=== PATIENT | female | born 1935 | race African-American/Black ===

== ENCOUNTER 2016-10-19 07:48 | Inpatient (IN) | payer MEDICARE, OTHER ==
[2016-10-19] MEDS ORDERED: NORMAL SALINE 1000 ML 500 ML IV ONE (09:08)
[2016-10-19] MEDS ORDERED: ALBUTEROL SULFATE 0.083% NEB 2.5 MG/3 ML AMPUL NEB ONE (09:19)
[2016-10-19 10:06] LABS: ABSOLUTE LYMPHOCYTES (AUTO) 0.9 10^3/uL (0.5-4.7); ABSOLUTE MONOCYTES (AUTO) 0.9 10^3/uL (0.1-1.4); ABSOLUTE NEUT (AUTO) 12.7 10^3/uL (1.7-8.2); BASOPHILS % (AUTO) 0.1 % (0-2); EOSINOPHILS % (AUTO) 0.1 % (0-6); HEMATOCRIT 32.7 % (36.0-47.0); HEMOGLOBIN 10.4 g/dL (12.0-15.5); HGB HCT DIFFERENCE -1.5; LYMPHOCYTES % (AUTO) 6.5 % (13-45); MEAN CORPUSCULAR HEMOGLOBIN 27.4 pg (27.0-33.4); MEAN CORPUSCULAR HGB CONC 31.7 g/dL (32.0-36.0); MEAN CORPUSCULAR VOLUME 87 fl (80-97); MONOCYTES % (AUTO) 6.4 % (3-13); RED BLOOD COUNT 3.78 10^6/uL (3.72-5.28); RED CELL DISTRIBUTION WIDTH 16.8 % (11.5-14.0); SEGMENTED NEUTROPHILS % (AUTO) 86.9 % (42-78); WHITE BLOOD COUNT 14.6 10^3/uL (4.0-10.5)
[2016-10-19 10:23] LABS: ALANINE AMINOTRANSFERASE 27 U/L (9-52); ALBUMIN 3.8 g/dL (3.5-5.0); ALKALINE PHOSPHATASE 74 U/L (38-126); ANION GAP 19 (5-19); ASPARTATE AMINO TRANSFERASE 32 U/L (14-36); BILIRUBIN,TOTAL 1.3 mg/dL (0.2-1.3); BLOOD UREA NITROGEN 83 mg/dL (7-20); CALCIUM 10.1 mg/dL (8.4-10.2); CARBON DIOXIDE 21 mmol/L (22-30); CHLORIDE 111 mmol/L (98-107); CREATINE KINASE 117 U/L (30-135); CREATININE RESULT 4.28 mg/dL (0.52-1.25); GLUCOSE 136 mg/dL (75-110); SODIUM 151.4 mmol/L (137-145); TOTAL PROTEIN 6.6 g/dL (6.3-8.2)
[2016-10-19 10:35] LABS: CREATINE KINASE MB 2.71 ng/mL (<4.55)
[2016-10-19 10:37] LABS: TROPONIN I 0.172 ng/mL
[2016-10-19] MEDS ORDERED: CEFTRIAXONE 1 GM/D5W RTU 50 ML IV ONE (10:40)
[2016-10-19] MEDS ORDERED: NORMAL SALINE 1000 ML 1,000 ML IV ONE ×2 (10:40→12:17)
[2016-10-19 10:43] LABS: APPEARANCE,URINE CLEAR; BILIRUBIN,URINE NEGATIVE (NEGATIVE); GLUCOSE, URINE NEGATIVE (NEGATIVE); KETONES,URINE NEGATIVE (NEGATIVE); LEUKOCYTE ESTERASE,URINE NEGATIVE (NEGATIVE); NITRITE,URINE NEGATIVE (NEGATIVE); PROTEIN,URINE NEGATIVE (NEGATIVE); URINE SPECIFIC GRAVITY 1.011; UROBILINOGEN,URINE NEGATIVE mg/dL (<2.0)
[2016-10-19] MEDS ORDERED: DEXTROSE 5%-1/2 NORMAL SALINE 1,000 ML IV ONE (12:26)
[2016-10-19] MEDS ORDERED: ONDANSETRON HCL INJ/PF 4 MG/2 ML SDV IV PRN (12:39)
[2016-10-19] MEDS ORDERED: ACETAMINOPHEN 650 MG SUPP.RECT PR PRN (12:39)
--- NOTE | 2016-10-19 12:42 | ER Document Report ---
ED General - General Chief Complaint: Shortness Of Breath Stated Complaint: SHORTNESS OF BREATH TRAVEL OUTSIDE OF THE [place] IN LAST 30 DAYS: No - HPI Patient complains to provider of: shortness of breath feeling unwell Notes: Patient's coming in family at bedside patient according to family is a DNR/DNI. Patient looks debilitated frail according to family member patient is minimally verbal and minimally active history dementia and is from home states cough and rattling in her chest for last few days also states that the home health care nurse noticed swelling of her legs therefore brought patient in for evaluation. Family states patient recently on ampicillin for UTI. Otherwise most of the history of present illness is unobtainable from the patient family has minimal information to give. - Related Data Allergies/Adverse Reactions: Tuberculin,Ppd,Multi-Puncture [From Tuberculin PPD Tamara Test] Allergy (Verified 10/19/16 08:06) Past Medical History - Social History Smoking Status: Unknown if Ever Smoked Family History: DM, Hypertension Patient has suicidal ideation: No Patient has homicidal ideation: No - Past Medical History Cardiac Medical History: Reports: Hx Hypertension Pulmonary Medical History: Reports: Hx Asthma, Hx COPD Neurological Medical History: Reports: Hx Cerebrovascular Accident Endocrine Medical History: Reports: Hx Diabetes Mellitus Type 2, Hx Hypothyroidism Renal/ Medical History: Denies: Hx Peritoneal Dialysis Musculoskeltal Medical History: Reports Hx Musculoskeletal Trauma Psychiatric Medical History: Reports: Hx Dementia Traumatic Medical History: Reports: Hx Fractures - hip Past Surgical History: Reports: Hx Orthopedic Surgery - hip replacement, Hx Tubal Ligation - Immunizations Immunizations up to date: Yes Hx Diphtheria, Pertussis, Tetanus Vaccination: Yes Hx Pneumococcal Vaccination: 08/10/00 Review of Systems - Review of Systems -: Yes ROS unobtainable due to patient's medical condition - Dementia Physical Exam - Vital signs Vitals: Pulse Resp BP Pulse Ox 56 L 26 H 118/93 H 94 10/19/16 08:06 10/19/16 08:06 10/19/16 08:06 10/19/16 08:06 Interpretation: Normal - General General appearance: Unresponsive - HEENT Head: Normocephalic, Atraumatic, Other - Patient with a wound very stages of healing with some necrotic tissue of the right ear Pupils: PERRL - Respiratory Respiratory status: No respiratory distress Chest status: Nontender Breath sounds: Rhonchi Chest palpation: Normal - Cardiovascular Rhythm: Regular Heart sounds: Normal auscultation Murmur: No - Abdominal Inspection: Normal Distension: No distension Bowel sounds: Normal Tenderness: Nontender Organomegaly: No organomegaly - Rectal Notes: Patient with unstageable decubitus ulceration with necrotic tissue ulceration has surrounding erythema approximately 5 cm x 7 cm with a foul odor no purulent drainage - Genitourinary External exam: Normal - Back Back: Normal, Nontender - Extremities General upper extremity: Normal inspection, Nontender General lower extremity: Normal inspection, Nontender - Neurological Neuro grossly intact: Yes - Psychological Associated symptoms: Other - Dementia - Skin Skin Temperature: Warm Skin Moisture: Dry Skin Color: Normal Course - Re-evaluation Re-evalutation: 10/19/16 12:29 Discussion with the family at bedside states makes medical decisions for the patient states that the patient is a DO NOT RESUSCITATE. 10/19/16 13:46 Patient's lab work is consistent with possible sirs infection. Patient was given IV fluids started on Rocephin patient also has acute renal failure with hypernatremia. Patient's case was referred to the hospitalist for further evaluation and management. - Vital Signs Vital signs: Temp Pulse Resp BP Pulse Ox 96.2 F L 56 L 31 H 128/90 H 98 10/19/16 09:23 10/19/16 08:06 10/19/16 10:01 10/19/16 10:00 10/19/16 09:00 - Laboratory Result Diagrams: 10/19/16 09:45 10/19/16 09:45 Laboratory results interpreted by me: 10/19/16 10/19/16 10/19/16 09:45 09:45 09:45 WBC 14.6 H Hgb 10.4 L Hct 32.7 L MCHC 31.7 L RDW 16.8 H Plt Count 129 L Seg Neutrophils % 86.9 H Lymphocytes % 6.5 L Absolute Neutrophils 12.7 H Sodium 151.4 H Chloride 111 H Carbon Dioxide 21 L BUN 83 H Creatinine 4.28 H Est GFR ( Amer) 12 L Est GFR (Non-Af Amer) 10 L Glucose 136 H Lactic Acid NT-Pro-B Natriuret Pep 4120 H 10/19/16 09:45 WBC Hgb Hct MCHC RDW Plt Count Seg Neutrophils % Lymphocytes % Absolute Neutrophils Sodium Chloride Carbon Dioxide BUN Creatinine Est GFR ( Amer) Est GFR (Non-Af Amer) Glucose Lactic Acid 5.4 H NT-Pro-B Natriuret Pep Critical Care Note - Critical Care Note Total time excluding time spent on procedures (mins): 35 Comments: Multiple evaluations for patient with Sirs multiple evaluation for electron abnormalities Discharge - Discharge Clinical Impression: DNR (do not resuscitate), Dehydration, SIRS (systemic inflammatory response syndrome), Hypernatremia Acute kidney failure Qualifiers: Acute renal failure type: unspecified Qualified Code(s): N17.9 - Acute kidney failure, unspecified Infected decubitus ulcer Qualifiers: Pressure ulcer stage: unspecified pressure ulcer stage Qualified Code(s): L89.90 - Pressure ulcer of unspecified site, unspecified stage Condition: Fair Disposition: ADMITTED INPATIENT Admitting Provider: [facility] Admitted: [facility]
[2016-10-19 13:09] LABS: VENOUS BLOOD BASE EXCESS -7.8 mmol/L; VENOUS BLOOD HCO3 19.6 mmol/L (20-32); VENOUS BLOOD PCO2 48.1 mmHg (35-63); VENOUS BLOOD PH 7.23 (7.30-7.42)
[2016-10-19] MEDS ORDERED: AZITHROMYCIN INJ 500 MG VIAL IV ONE (14:03)
[2016-10-19] MEDS ORDERED: DEXTROSE 40% GEL 15 GM TUBE PO PRN ×2 (14:04)
[2016-10-19] MEDS ORDERED: INSULIN LISPRO 100 UNIT/ML 3 ML VIAL SUBCUT PRN (14:04)
[2016-10-19] MEDS ORDERED: DEXTROSE 50%-WATER 25 GM/50 ML DISP.SYRIN IV PRN (14:04)
[2016-10-19] MEDS ORDERED: GLUCAGON,HUMAN RECOMB 1 MG INJ IM PRN (14:04)
[2016-10-19] MEDS: HEPARIN SOD (PORCINE) 5,000 UNIT/ML 1 ML SYRINGE SUBCUT SCH (14:08)
[2016-10-19] MEDS: AZITHROMYCIN 500 MG in DEXTROSE 5%-WATER 250 ML IV SCH (14:08)
--- NOTE | 2016-10-19 14:25 | PDOC H&P ---
History of Present Illness Admission Date/PCP: Dr. Moi Do Patient complains of: Difficulty breathing History of Present Illness: DARION KAUFMAN is a 81 year old female that is accompanied to the emergency department by her son for difficulty with breathing and altered mental status. Patient has been treated recently for urinary tract infection with ampicillin. Patient resides with her son and son states that she has not been eating and drinking as much recently. It's noted that patient also has a sacral decubitus ulcer that is treated at the wound clinic. She is immobile from advanced dementia. She is currently DO NOT RESUSCITATE/DO NOT INTUBATE. Medications listed below have not been verified at the time of this documentation. Past Medical History Cardiac Medical History: Reports: Hypertension Pulmonary Medical History: Reports: Asthma, Chronic Obstructive Pulmonary Disease (COPD) Endocrine Medical History: Reports: Diabetes Mellitus Type 2, Hypothyroidism Skin Medical History: Reports: Other - Sacral wound Psychiatric Medical History: Reports: Dementia Past Surgical History Past Surgical History: Reports: Orthopedic Surgery - hip replacement, Tubal Ligation Social History Information Source: Patient Lives with: Family Smoking Status: Unknown if Ever Smoked Frequency of Alcohol Use: None Hx Recreational Drug Use: No Hx Prescription Drug Abuse: No - Advance Directive Resuscitation Status: Do Not Resuscitate Family History Family History: DM, Hypertension Parental Family History Reviewed: Yes Children Family History Reviewed: Yes Sibling(s) Family History Reviewed.: Yes Medication/Allergy Allergies/Adverse Reactions: Tuberculin,Ppd,Multi-Puncture [From Tuberculin PPD Tamara Test] Allergy (Verified 10/19/16 08:06) Review of Systems ROS unobtainable: Due to mental status Physical Exam Vital Signs: Temp Pulse Resp BP Pulse Ox 96.2 F L 56 L 31 H 128/90 H 98 10/19/16 09:23 10/19/16 08:06 10/19/16 10:01 10/19/16 10:00 10/19/16 09:00 Intake & Output 10/18/16 10/19/16 10/20/16 05:59 06:59 06:59 Weight 40.1 kg PHYSICAL EXAM: GENERAL: Appears well, no acute distress, well-groomed HEENT: Normocephalic, no scleral icterus, conjunctiva clear, EOEM intact, PERRLA , moist mucous membranes NECK: trachea midline, no thyromegally RESPIRATORY: Clear to auscultation, no wheezes/rhonchi CARDIAC: Tachycardic ABDOMEN: Soft, no distension, no tenderness, no guarding, normal bowel sounds, negative Blanton sign EXTREMITIES: No edema, cyanosis, clubbing MUSCULOSKELETAL: Diffuse muscle wasting VASCULAR: normal peripheral pulses NEUROLOGIC: Alert, nonverbal, contracted SKIN: unstageable sacral decubitus ulceration with necrotic tissue ulceration has surrounding erythema approximately 5 cm x 7 cm with a foul odor, no purulent drainage PSYCHIATRIC: Flat affect Results Laboratory Results: 10/19/16 09:45 10/19/16 09:45 10/19/16 10/19/16 10/19/16 09:45 09:45 09:45 WBC 14.6 H RBC 3.78 Hgb 10.4 L Hct 32.7 L MCV 87 MCH 27.4 MCHC 31.7 L RDW 16.8 H Plt Count 129 L Seg Neutrophils % 86.9 H Lymphocytes % 6.5 L Monocytes % 6.4 Eosinophils % 0.1 Basophils % 0.1 Absolute Neutrophils 12.7 H Absolute Lymphocytes 0.9 Absolute Monocytes 0.9 Absolute Eosinophils 0.0 Absolute Basophils 0.0 VBG pH VBG pCO2 VBG HCO3 VBG Base Excess Sodium 151.4 H Potassium 5.0 Chloride 111 H Carbon Dioxide 21 L Anion Gap 19 BUN 83 H Creatinine 4.28 H Est GFR ( Amer) 12 L Est GFR (Non-Af Amer) 10 L Glucose 136 H Lactic Acid 5.4 H Calcium 10.1 Total Bilirubin 1.3 AST 32 ALT 27 Alkaline Phosphatase 74 Total Protein 6.6 Albumin 3.8 Urine Color Urine Appearance Urine pH Ur Specific [place] Urine Protein Urine Glucose (UA) Urine Ketones Urine Blood Urine Nitrite Ur Leukocyte Esterase Urine WBC (Auto) Urine RBC (Auto) 10/19/16 10/19/16 10:26 12:42 WBC RBC Hgb Hct MCV MCH MCHC RDW Plt Count Seg Neutrophils % Lymphocytes % Monocytes % Eosinophils % Basophils % Absolute Neutrophils Absolute Lymphocytes Absolute Monocytes Absolute Eosinophils Absolute Basophils VBG pH 7.23 L VBG pCO2 48.1 VBG HCO3 19.6 L VBG Base Excess -7.8 Sodium Potassium Chloride Carbon Dioxide Anion Gap BUN Creatinine Est GFR ( Amer) Est GFR (Non-Af Amer) Glucose Lactic Acid Calcium Total Bilirubin AST ALT Alkaline Phosphatase Total Protein Albumin Urine Color YELLOW Urine Appearance CLEAR Urine pH 6.0 Ur Specific [place] 1.011 Urine Protein NEGATIVE Urine Glucose (UA) NEGATIVE Urine Ketones NEGATIVE Urine Blood NEGATIVE Urine Nitrite NEGATIVE Ur Leukocyte Esterase NEGATIVE Urine WBC (Auto) 1 Urine RBC (Auto) 1 10/19/16 10/19/16 09:45 09:45 Creatine Kinase 117 CK-MB (CK-2) 2.71 Troponin I 0.172 NT-Pro-B Natriuret Pep 4120 H EKG Comments: Sinus tachycardia Impressions: Chest X-Ray 10/19/16 08:36 IMPRESSION: NO SIGNIFICANT RADIOGRAPHIC FINDING IN THE CHEST. Assessment & Plan - Diagnosis (1) SIRS (systemic inflammatory response syndrome) Is this a current diagnosis for this admission?: YesPlan: This may be secondary to infected sacral wound given exam findings. That being said patient has also had respiratory symptoms according to her son. No definite infiltrate was seen on chest x-ray however patient is very dehydrated. I will repeat chest x-ray once patient is rehydrated. I will cover empirically for wound infection and pneumonia with IV Rocephin and IV azithromycin. (2) Encephalopathy Is this a current diagnosis for this admission?: YesPlan: Multifactorial nature to include underlying dementia, infection, dehydration. Continue supportive care. Nothing by mouth status for now. IV fluids. Check head CT. (3) Acute kidney failure Qualifiers: Acute renal failure type: unspecified Qualified Code(s): N17.9 - Acute kidney failure, unspecified Is this a current diagnosis for this admission?: YesPlan: Likely secondary to dehydration. Administer IV fluids. Monitor kidney function closely. Avoid nephrotoxic medications and renally adjust medications as needed. (4) Dehydration Is this a current diagnosis for this admission?: YesPlan: IV rehydration. (5) Hypernatremia Is this a current diagnosis for this admission?: YesPlan: Hypotonic IV fluids. (6) Infected decubitus ulcer Qualifiers: Pressure ulcer stage: unspecified pressure ulcer stage Qualified Code(s ): L89.90 - Pressure ulcer of unspecified site, unspecified stage Is this a current diagnosis for this admission?: YesPlan: IV Rocephin. Consult surgery. (7) Dysphagia, oropharyngeal phase Is this a current diagnosis for this admission?: YesPlan: Nothing by mouth for now. Speech therapy to evaluate. (8) DNR (do not resuscitate) Is this a current diagnosis for this admission?: Yes - Time Time Spent: Greater than 70 Minutes
[2016-10-19] MEDS: 1/2 NORMAL SALINE 1,000 ML IV PRN (16:10)
--- NOTE | 2016-10-19 20:13 | EKG REPORT ---
SEVERITY:- ABNORMAL ECG - SINUS TACHYCARDIA RIGHT ATRIAL ABNORMALITY INDETERMINATE QRS AXIS LOW VOLTAGE WITH RIGHT AXIS DEVIATION NONSPECIFIC T ABNORMALITIES, LATERAL LEADS : Confirmed by: Gladis Pardo 19-Oct-2016 20:13:04
[2016-10-20] MEDS: 1/2 NORMAL SALINE 1,000 ML IV PRN ×3 (00:09→14:44)
[2016-10-20] MEDS: HEPARIN SOD (PORCINE) 5,000 UNIT/ML 1 ML SYRINGE SUBCUT SCH ×4 (00:10→21:42)
[2016-10-20 06:53] LABS: ABSOLUTE LYMPHOCYTES (AUTO) 1.3 10^3/uL (0.5-4.7); ABSOLUTE MONOCYTES (AUTO) 0.7 10^3/uL (0.1-1.4); ABSOLUTE NEUT (AUTO) 10.3 10^3/uL (1.7-8.2); BASOPHILS % (AUTO) 0.3 % (0-2); EOSINOPHILS % (AUTO) 0.3 % (0-6); HEMATOCRIT 28.7 % (36.0-47.0); HEMOGLOBIN 9.2 g/dL (12.0-15.5); HGB HCT DIFFERENCE -1.1; LYMPHOCYTES % (AUTO) 10.8 % (13-45); MEAN CORPUSCULAR HEMOGLOBIN 27.2 pg (27.0-33.4); MEAN CORPUSCULAR HGB CONC 32.2 g/dL (32.0-36.0); MEAN CORPUSCULAR VOLUME 85 fl (80-97); RED CELL DISTRIBUTION WIDTH 16.5 % (11.5-14.0); SEGMENTED NEUTROPHILS % (AUTO) 82.6 % (42-78); WHITE BLOOD COUNT 12.4 10^3/uL (4.0-10.5)
[2016-10-20 07:04] LABS: ANION GAP 10 (5-19); BLOOD UREA NITROGEN 76 mg/dL (7-20); CALCIUM 8.9 mg/dL (8.4-10.2); CARBON DIOXIDE 23 mmol/L (22-30); CHLORIDE 114 mmol/L (98-107); CREATININE RESULT 2.78 mg/dL (0.52-1.25); GLUCOSE 100 mg/dL (75-110); POTASSIUM 4.3 mmol/L (3.6-5.0); SODIUM 147.1 mmol/L (137-145)
[2016-10-20] MEDS: CEFTRIAXONE 1 GM/D5W RTU 50 ML IV SCH (10:49)
--- NOTE | 2016-10-20 11:02 | PDOC CONSULTATION ---
Consultation Consult Date: 10/20/16 Attending physician:: ASHLEY CHERY History of Present Illness Admission Date/PCP: 10/19/16 12:39 JACINTO ROA MD History of Present Illness: DARION KAUFMAN is a 81 year old female that is accompanied to the emergency department by her son for difficulty with breathing and altered mental status. Patient has been treated recently for urinary tract infection with ampicillin. Patient resides with her son and son states that she has not been eating and drinking as much recently. It's noted that patient also has a sacral decubitus ulcer that is treated at the wound clinic. She is immobile from advanced dementia. She is currently DO NOT RESUSCITATE/DO NOT INTUBATE. Medications listed below have not been verified at the time of this documentation. Past Medical History Cardiac Medical History: Reports: Hypertension Pulmonary Medical History: Reports: Asthma, Chronic Obstructive Pulmonary Disease (COPD) Endocrine Medical History: Reports: Diabetes Mellitus Type 2, Hypothyroidism Skin Medical History: Reports: Other - Sacral wound Psychiatric Medical History: Reports: Dementia Past Surgical History Past Surgical History: Reports: Orthopedic Surgery - hip replacement, Tubal Ligation Social History Lives with: Family Smoking Status: Unknown if Ever Smoked Frequency of Alcohol Use: None Hx Recreational Drug Use: No Hx Prescription Drug Abuse: No - Advance Directive Resuscitation Status: Do Not Resuscitate Family History Family History: DM, Hypertension Parental Family History Reviewed: Yes Children Family History Reviewed: Yes Sibling(s) Family History Reviewed.: Yes Medication/Allergy Home Medications: Albuterol Sulfate [Ventolin HFA MDI 18 GM] 2 puff IH Q4HP PRN 10/19/16 Aspirin [Ecotrin 325 mg EC Tablet] 325 mg PO DAILY 10/19/16 Calcium Carbonate/Vitamin D3 [Calcium 500-Vit D3 200 Tablet] 1 each PO DAILY 07/26 Cyclosporine [Restasis Droperette] 1 drop OU DAILY 10/19/16 Fluticasone/Salmeterol [Advair 250-50 Diskus 14 Dose/Diskus] 1 puff IH BID 10/19 Levothyroxine Sodium [Synthroid 0.112 mg Tablet] 0.112 mg PO DAILY 10/19/16 Loratadine [Claritin 10 mg Tablet] 10 mg PO DAILY 10/19/16 Magnesium Oxide [Mag-Ox 400 mg Tablet] 400 mg PO Q12 10/19/16 Prednisone [Deltasone 10 mg Tablet] 10 mg PO DAILY 10/19/16 Quetiapine Fumarate [Seroquel 25 mg Tablet] 75 mg PO QHS 10/19/16 Rivastigmine [Exelon 4.6 mg/24 Hr Transdermal Patch] 1 each TOP DAILY 10/19/16 Tiotropium Lucas [Spiriva Handihaler 5 Cap/Kit (18 Mcg/Cap)] 1 puff IH DAILY 10/19/16 Verapamil HCl [Verapamil ER] 120 mg PO [id number] 10/19/16 Allergies/Adverse Reactions: Tuberculin,Ppd,Multi-Puncture [From Tuberculin PPD Tamara Test] Allergy (Verified 10/19/16 08:06) Physical Exam Vital Signs: Temp Pulse Resp BP Pulse Ox 99.3 F 56 L 20 109/70 100 10/20/16 06:25 10/19/16 08:06 10/20/16 07:01 10/20/16 07:00 10/20/16 07:09 General appearance: PRESENT: other - Patient is essentially morbid. She is unresponsive to deep. She only a little bit when we rotated to the left lateral. His only contracted and Skin exam: PRESENT: other - With additional left lateral position. The sacral wound is a stage III possibly stage IV, irregular, approximately 3 x 4 cm in diameter. No active pus draining. Mostly devitalized tissue Results Laboratory Results: 10/20/16 06:43 10/20/16 06:43 10/19/16 10/19/16 10/20/16 12:42 14:10 06:43 WBC 12.4 H RBC 3.40 L Hgb 9.2 L Hct 28.7 L MCV 85 MCH 27.2 MCHC 32.2 RDW 16.5 H Plt Count 118 L Seg Neutrophils % 82.6 H Lymphocytes % 10.8 L Monocytes % 6.0 Eosinophils % 0.3 Basophils % 0.3 Absolute Neutrophils 10.3 H Absolute Lymphocytes 1.3 Absolute Monocytes 0.7 Absolute Eosinophils 0.0 Absolute Basophils 0.0 VBG pH 7.23 L VBG pCO2 48.1 VBG HCO3 19.6 L VBG Base Excess -7.8 Sodium Potassium Chloride Carbon Dioxide Anion Gap BUN Creatinine Est GFR ( Amer) Est GFR (Non-Af Amer) Glucose Lactic Acid 2.4 H Calcium 10/20/16 06:43 WBC RBC Hgb Hct MCV MCH MCHC RDW Plt Count Seg Neutrophils % Lymphocytes % Monocytes % Eosinophils % Basophils % Absolute Neutrophils Absolute Lymphocytes Absolute Monocytes Absolute Eosinophils Absolute Basophils VBG pH VBG pCO2 VBG HCO3 VBG Base Excess Sodium 147.1 H Potassium 4.3 Chloride 114 H Carbon Dioxide 23 Anion Gap 10 BUN 76 H Creatinine 2.78 H Est GFR ( Amer) 20 L Est GFR (Non-Af Amer) 16 L Glucose 100 Lactic Acid Calcium 8.9 Impressions: Head CT 10/19/16 00:00 IMPRESSION: CHRONIC CHANGES OF ATROPHY AND MICROVASCULAR ISCHEMIA. NO ACUTE PROCESS. Chest X-Ray 10/20/16 06:00 IMPRESSION: NO ACUTE RADIOGRAPHIC FINDING IN THE CHEST. Assessment & Plan - Diagnosis (1) Sacral decubitus ulcer, stage III Is this a current diagnosis for this admission?: YesPlan: This is a classic stage 3 to 4 sacral decubitus ulcer related to complete immobility, comatose state. The patient is a DO NOT RESUSCITATE and is essentially unresponsive at the time of my examination My clinical recommendation is that we avoid any sort of operative. I have ordered an Allevyn dressing change provided. Will sign off at this time.
--- NOTE | 2016-10-20 12:02 | PDOC PROGRESS REPORT ---
Subjective Progress Note for:: 10/20/16 Subjective:: The patient is seen on rounds today. She appears to be comatose and unresponsive. Physical Exam Vital Signs: Temp Pulse Resp BP Pulse Ox 99.3 F 56 L 18 112/71 100 10/20/16 06:25 10/19/16 08:06 10/20/16 11:01 10/20/16 11:00 10/20/16 07:09 General appearance: PRESENT: disheveled Eye exam: PRESENT: conjunctival injection Mouth exam: PRESENT: dry mucosa Neck exam: PRESENT: other Respiratory exam: PRESENT: decreased breath sounds, rhonchi Cardiovascular exam: PRESENT: tachycardia Pulses: PRESENT: +1 pedal pulses bilateral GI/Abdominal exam: PRESENT: rigid Extremities exam: PRESENT: other Musculoskeletal exam: PRESENT: other Neurological exam: PRESENT: aphasic Additional comments: Unresponsive to even painful stimuli Skin exam: PRESENT: skin tears, other Additional comments: Sacral decub Results Laboratory Results: 10/20/16 06:43 10/20/16 06:43 10/19/16 10/19/16 10/20/16 12:42 14:10 06:43 WBC 12.4 H RBC 3.40 L Hgb 9.2 L Hct 28.7 L MCV 85 MCH 27.2 MCHC 32.2 RDW 16.5 H Plt Count 118 L Seg Neutrophils % 82.6 H Lymphocytes % 10.8 L Monocytes % 6.0 Eosinophils % 0.3 Basophils % 0.3 Absolute Neutrophils 10.3 H Absolute Lymphocytes 1.3 Absolute Monocytes 0.7 Absolute Eosinophils 0.0 Absolute Basophils 0.0 VBG pH 7.23 L VBG pCO2 48.1 VBG HCO3 19.6 L VBG Base Excess -7.8 Sodium Potassium Chloride Carbon Dioxide Anion Gap BUN Creatinine Est GFR ( Amer) Est GFR (Non-Af Amer) Glucose Lactic Acid 2.4 H Calcium 10/20/16 06:43 WBC RBC Hgb Hct MCV MCH MCHC RDW Plt Count Seg Neutrophils % Lymphocytes % Monocytes % Eosinophils % Basophils % Absolute Neutrophils Absolute Lymphocytes Absolute Monocytes Absolute Eosinophils Absolute Basophils VBG pH VBG pCO2 VBG HCO3 VBG Base Excess Sodium 147.1 H Potassium 4.3 Chloride 114 H Carbon Dioxide 23 Anion Gap 10 BUN 76 H Creatinine 2.78 H Est GFR ( Amer) 20 L Est GFR (Non-Af Amer) 16 L Glucose 100 Lactic Acid Calcium 8.9 Impressions: Head CT 10/19/16 00:00 IMPRESSION: CHRONIC CHANGES OF ATROPHY AND MICROVASCULAR ISCHEMIA. NO ACUTE PROCESS. Chest X-Ray 10/20/16 06:00 IMPRESSION: NO ACUTE RADIOGRAPHIC FINDING IN THE CHEST. Assessment & Plan - Diagnosis (1) Acute kidney failure Qualifiers: Acute renal failure type: unspecified Qualified Code(s): N17.9 - Acute kidney failure, unspecified Is this a current diagnosis for this admission?: YesPlan: Slightly improved with hydration (2) Dehydration Is this a current diagnosis for this admission?: YesPlan: Presently being hydrated with IV fluids (3) Encephalopathy Is this a current diagnosis for this admission?: YesPlan: Worsening of dementia with most probably encephalopathy secondary to dehydration (4) SIRS (systemic inflammatory response syndrome) Is this a current diagnosis for this admission?: YesPlan: Possibly secondary to pneumonia and sacral decub (5) Hypernatremia Is this a current diagnosis for this admission?: YesPlan: Most probably secondary to dehydration presently being corrected with IV fluids
[2016-10-20] MEDS: AZITHROMYCIN 500 MG in DEXTROSE 5%-WATER 250 ML IV SCH (14:51)
[2016-10-20] MEDS: ALBUTEROL SULFATE 0.083% NEB 2.5 MG/3 ML AMPUL NEB PRN (16:49)
[2016-10-21] MEDS: 1/2 NORMAL SALINE 1,000 ML IV PRN ×3 (02:31→21:36)
[2016-10-21 04:33] LABS: ABSOLUTE EOSINOPHILS # (AUTO) 0.1 10^3/uL (0.0-0.6); ABSOLUTE LYMPHOCYTES (AUTO) 1.7 10^3/uL (0.5-4.7); ABSOLUTE MONOCYTES (AUTO) 0.8 10^3/uL (0.1-1.4); ABSOLUTE NEUT (AUTO) 10.3 10^3/uL (1.7-8.2); BASOPHILS % (AUTO) 0.2 % (0-2); EOSINOPHILS % (AUTO) 0.5 % (0-6); HEMATOCRIT 29.5 % (36.0-47.0); HEMOGLOBIN 9.4 g/dL (12.0-15.5); HGB HCT DIFFERENCE -1.3; LYMPHOCYTES % (AUTO) 13.2 % (13-45); MEAN CORPUSCULAR HEMOGLOBIN 27.3 pg (27.0-33.4); MEAN CORPUSCULAR VOLUME 85 fl (80-97); RED BLOOD COUNT 3.46 10^6/uL (3.72-5.28); RED CELL DISTRIBUTION WIDTH 17.5 % (11.5-14.0); SEGMENTED NEUTROPHILS % (AUTO) 80.1 % (42-78); WHITE BLOOD COUNT 12.9 10^3/uL (4.0-10.5)
[2016-10-21 04:42] LABS: ANION GAP 12 (5-19); BLOOD UREA NITROGEN 64 mg/dL (7-20); CARBON DIOXIDE 21 mmol/L (22-30); CHLORIDE 113 mmol/L (98-107); CREATININE RESULT 2.15 mg/dL (0.52-1.25); GLUCOSE 88 mg/dL (75-110); POTASSIUM 4.1 mmol/L (3.6-5.0); SODIUM 146.4 mmol/L (137-145)
[2016-10-21] MEDS: HEPARIN SOD (PORCINE) 5,000 UNIT/ML 1 ML SYRINGE SUBCUT SCH ×3 (05:55→21:37)
--- NOTE | 2016-10-21 08:50 | PDOC PROGRESS REPORT ---
Subjective Progress Note for:: 10/21/16 Subjective:: The patient appears to be more alert this morning. Son present in the room. Long discussion about cachexia and difficulty feeding the patient because of high probability of aspirations. Physical Exam Vital Signs: Temp Pulse Resp BP Pulse Ox 97.5 F 105 H 20 113/59 L 100 10/21/16 03:50 10/21/16 07:00 10/21/16 03:50 10/21/16 03:50 10/21/16 03:50 Intake & Output 10/20/16 10/21/16 10/22/16 06:59 06:59 06:59 Intake Total 553 1850 Balance 553 1850 Weight 51.4 kg General appearance: PRESENT: severe distress Head exam: PRESENT: other Additional Comments: Right ear decubitus ulcer Mouth exam: PRESENT: dry mucosa Neck exam: PRESENT: carotid bruit Respiratory exam: PRESENT: rhonchi Cardiovascular exam: PRESENT: tachycardia Pulses: PRESENT: +1 pedal pulses bilateral GI/Abdominal exam: PRESENT: soft Extremities exam: PRESENT: other Additional comments: Status post CVA with contractions of the upper extremity Musculoskeletal exam: PRESENT: other Neurological exam: PRESENT: awake, motor sensory deficit, aphasic Psychiatric exam: PRESENT: anxious Skin exam: PRESENT: abrasion, erythema, skin tears, other Additional comments: Right ear decubitus ulcer Sacral decubitus ulcer Results Laboratory Results: 10/21/16 03:47 10/21/16 03:47 10/21/16 10/21/16 03:47 03:47 WBC 12.9 H RBC 3.46 L Hgb 9.4 L Hct 29.5 L MCV 85 MCH 27.3 MCHC 32.0 RDW 17.5 H Plt Count 136 L Seg Neutrophils % 80.1 H Lymphocytes % 13.2 Monocytes % 6.0 Eosinophils % 0.5 Basophils % 0.2 Absolute Neutrophils 10.3 H Absolute Lymphocytes 1.7 Absolute Monocytes 0.8 Absolute Eosinophils 0.1 Absolute Basophils 0.0 Sodium 146.4 H Potassium 4.1 Chloride 113 H Carbon Dioxide 21 L Anion Gap 12 BUN 64 H Creatinine 2.15 H Est GFR ( Amer) 27 L Est GFR (Non-Af Amer) 22 L Glucose 88 Calcium 9.0 Impressions: Head CT 10/19/16 00:00 IMPRESSION: CHRONIC CHANGES OF ATROPHY AND MICROVASCULAR ISCHEMIA. NO ACUTE PROCESS. Chest X-Ray 10/20/16 06:00 IMPRESSION: NO ACUTE RADIOGRAPHIC FINDING IN THE CHEST. Assessment & Plan - Diagnosis (1) Acute kidney failure Qualifiers: Acute renal failure type: unspecified Qualified Code(s): N17.9 - Acute kidney failure, unspecified Is this a current diagnosis for this admission?: YesPlan: Improving with hydration (2) Dehydration Is this a current diagnosis for this admission?: YesPlan: Improving with IV fluids (3) Encephalopathy Is this a current diagnosis for this admission?: YesPlan: Slight improvement with rehydration (4) SIRS (systemic inflammatory response syndrome) Is this a current diagnosis for this admission?: YesPlan: Possibly secondary to pneumonia and sacral decub (5) Hypernatremia Is this a current diagnosis for this admission?: YesPlan: Improving with IV fluids (6) Cachexia Is this a current diagnosis for this admission?: YesPlan: Most probably secondary to malnutrition (7) Malnutrition Is this a current diagnosis for this admission?: YesPlan: We'll attempt to add protein
[2016-10-21] MEDS: CEFTRIAXONE 1 GM/D5W RTU 50 ML IV SCH (09:52)
[2016-10-21] MEDS: ALBUTEROL SULFATE 0.083% NEB 2.5 MG/3 ML AMPUL NEB PRN (12:46)
[2016-10-21] MEDS ORDERED: COLLAGENASE CLOSTRIDIUM HIST. OINT 30 GM TOP ONE (14:00)
[2016-10-21] MEDS: AZITHROMYCIN 500 MG in DEXTROSE 5%-WATER 250 ML IV SCH (15:22)
[2016-10-21] MEDS: DEXTROSE 50%-WATER 25 GM/50 ML DISP.SYRIN IV PRN (15:37)
[2016-10-21] MEDS: BRIMONIDINE TARTRATE 0.2% OPH SOLN 5 ML OU SCH (17:59)
[2016-10-21] MEDS: CARBOXYMETHYLCELLULOSE SOD 0.5% 0.4 ML DROPERETTE OU SCH (17:59)
[2016-10-21] MEDS: DORZOLAMIDE HCL 2% OPH SOLN 10 ML OU SCH (18:00)
[2016-10-21] MEDS: CYCLOSPORINE 0.05% OPH EMULSIO 0.4 ML DROPERETTE OU SCH (18:00)
[2016-10-21] MEDS: BIMATOPROST 0.01% OPH SOLN 2.5 ML/BOTTLE OU SCH (21:37)
[2016-10-22 04:58] LABS: ABSOLUTE EOSINOPHILS # (AUTO) 0.1 10^3/uL (0.0-0.6); ABSOLUTE LYMPHOCYTES (AUTO) 1.1 10^3/uL (0.5-4.7); ABSOLUTE MONOCYTES (AUTO) 0.6 10^3/uL (0.1-1.4); ABSOLUTE NEUT (AUTO) 8.8 10^3/uL (1.7-8.2); BASOPHILS % (AUTO) 0.2 % (0-2); EOSINOPHILS % (AUTO) 1.1 % (0-6); HEMATOCRIT 26.5 % (36.0-47.0); HEMOGLOBIN 8.6 g/dL (12.0-15.5); HGB HCT DIFFERENCE -0.7; LYMPHOCYTES % (AUTO) 10.2 % (13-45); MEAN CORPUSCULAR HEMOGLOBIN 27.6 pg (27.0-33.4); MEAN CORPUSCULAR HGB CONC 32.6 g/dL (32.0-36.0); MEAN CORPUSCULAR VOLUME 85 fl (80-97); MONOCYTES % (AUTO) 5.5 % (3-13); RED BLOOD COUNT 3.13 10^6/uL (3.72-5.28); RED CELL DISTRIBUTION WIDTH 17.1 % (11.5-14.0); WHITE BLOOD COUNT 10.6 10^3/uL (4.0-10.5)
[2016-10-22 05:23] LABS: ANION GAP 9 (5-19); BLOOD UREA NITROGEN 43 mg/dL (7-20); CALCIUM 7.8 mg/dL (8.4-10.2); CARBON DIOXIDE 19 mmol/L (22-30); CHLORIDE 110 mmol/L (98-107); CREATININE RESULT 1.18 mg/dL (0.52-1.25); GLUCOSE 119 mg/dL (75-110); POTASSIUM 3.4 mmol/L (3.6-5.0); SODIUM 137.7 mmol/L (137-145)
[2016-10-22] MEDS: 1/2 NORMAL SALINE 1,000 ML IV PRN (06:05)
[2016-10-22] MEDS: HEPARIN SOD (PORCINE) 5,000 UNIT/ML 1 ML SYRINGE SUBCUT SCH ×3 (06:05→21:55)
--- NOTE | 2016-10-22 08:37 | PDOC PROGRESS REPORT ---
Subjective Progress Note for:: 10/22/16 Subjective:: The patient is lethargic and poorly responsive. She is resting comfortably in bed. Long discussion with the son about nutrition. Long discussion with the son about possible placement. He is very reluctant. Advised patient son about poor prognosis Physical Exam Vital Signs: Temp Pulse Resp BP Pulse Ox 97.8 F 96 16 114/73 93 10/22/16 04:03 10/22/16 04:03 10/22/16 04:03 10/22/16 04:03 10/22/16 04:03 Intake & Output 10/21/16 10/22/16 10/23/16 06:59 06:59 06:59 Intake Total 1849 2052 Balance 1849 2052 Weight 51.4 kg 53.1 kg General appearance: PRESENT: thin Eye exam: PRESENT: conjunctiva pale Neck exam: ABSENT: carotid bruit Respiratory exam: PRESENT: rhonchi Cardiovascular exam: PRESENT: +S1, +S2, tachycardia Pulses: PRESENT: +1 pedal pulses bilateral GI/Abdominal exam: PRESENT: normal bowel sounds, soft Extremities exam: PRESENT: other Additional comments: Contracted Neurological exam: PRESENT: aphasic Skin exam: PRESENT: skin tears Results Laboratory Results: 10/22/16 04:24 10/22/16 04:24 10/22/16 10/22/16 04:24 04:24 WBC 10.6 H RBC 3.13 L Hgb 8.6 L Hct 26.5 L MCV 85 MCH 27.6 MCHC 32.6 RDW 17.1 H Plt Count 147 L Seg Neutrophils % 83.0 H Lymphocytes % 10.2 L Monocytes % 5.5 Eosinophils % 1.1 Basophils % 0.2 Absolute Neutrophils 8.8 H Absolute Lymphocytes 1.1 Absolute Monocytes 0.6 Absolute Eosinophils 0.1 Absolute Basophils 0.0 Sodium 137.7 Potassium 3.4 L Chloride 110 H Carbon Dioxide 19 L Anion Gap 9 BUN 43 H Creatinine 1.18 Est GFR ( Amer) 53 L Est GFR (Non-Af Amer) 44 L Glucose 119 H Calcium 7.8 L Impressions: Head CT 10/19/16 00:00 IMPRESSION: CHRONIC CHANGES OF ATROPHY AND MICROVASCULAR ISCHEMIA. NO ACUTE PROCESS. Chest X-Ray 10/20/16 06:00 IMPRESSION: NO ACUTE RADIOGRAPHIC FINDING IN THE CHEST. Assessment & Plan - Diagnosis (1) Acute kidney failure Qualifiers: Acute renal failure type: unspecified Qualified Code(s): N17.9 - Acute kidney failure, unspecified Is this a current diagnosis for this admission?: YesPlan: Improved with hydration (2) Dehydration Is this a current diagnosis for this admission?: Yes (3) Encephalopathy Is this a current diagnosis for this admission?: YesPlan: Stable not improving poor prognosis (4) SIRS (systemic inflammatory response syndrome) Is this a current diagnosis for this admission?: Yes (5) Hypernatremia Is this a current diagnosis for this admission?: Yes (6) Cachexia Is this a current diagnosis for this admission?: YesPlan: We'll continue to try to improve appetite (7) Malnutrition Is this a current diagnosis for this admission?: YesPlan: We'll attempt to add protein
[2016-10-22] MEDS: CEFTRIAXONE 1 GM/D5W RTU 50 ML IV SCH (10:45)
[2016-10-22] MEDS: MULTIVITAMIN TABLET PO SCH (10:45)
[2016-10-22] MEDS: MEGESTROL ACETATE SUSP 400 MG/10 ML UDCUP PO SCH (10:45)
[2016-10-22] MEDS: CARBOXYMETHYLCELLULOSE SOD 0.5% 0.4 ML DROPERETTE OU SCH ×3 (10:49→20:33)
[2016-10-22] MEDS: CYCLOSPORINE 0.05% OPH EMULSIO 0.4 ML DROPERETTE OU SCH ×2 (10:50→18:32)
[2016-10-22] MEDS: DORZOLAMIDE HCL 2% OPH SOLN 10 ML OU SCH ×3 (10:50→18:31)
[2016-10-22] MEDS: BRIMONIDINE TARTRATE 0.2% OPH SOLN 5 ML OU SCH ×3 (10:51→18:31)
[2016-10-22] MEDS: DEXTROSE 50%-WATER 25 GM/50 ML DISP.SYRIN IV PRN (10:57)
[2016-10-22] MEDS: DEXTROSE 5%-NORMAL SALINE 1,000 ML IV PRN (10:58)
[2016-10-22] MEDS: COLLAGENASE CLOSTRIDIUM HIST. OINT 30 GM TOP SCH (12:28)
[2016-10-22] MEDS: AZITHROMYCIN 500 MG in DEXTROSE 5%-WATER 250 ML IV SCH (16:09)
[2016-10-22] MEDS: ALBUTEROL SULFATE 0.083% NEB 2.5 MG/3 ML AMPUL NEB PRN (18:39)
[2016-10-22] MEDS: BIMATOPROST 0.01% OPH SOLN 2.5 ML/BOTTLE OU SCH (21:55)
[2016-10-23] MEDS: HEPARIN SOD (PORCINE) 5,000 UNIT/ML 1 ML SYRINGE SUBCUT SCH ×3 (06:59→22:27)
[2016-10-23] MEDS: ALBUTEROL SULFATE 0.083% NEB 2.5 MG/3 ML AMPUL NEB PRN (08:05)
[2016-10-23] MEDS: CEFTRIAXONE 1 GM/D5W RTU 50 ML IV SCH (11:12)
[2016-10-23] MEDS: MEGESTROL ACETATE SUSP 400 MG/10 ML UDCUP PO SCH (11:13)
[2016-10-23] MEDS: MULTIVITAMIN TABLET PO SCH (11:14)
[2016-10-23] MEDS: CYCLOSPORINE 0.05% OPH EMULSIO 0.4 ML DROPERETTE OU SCH ×2 (11:14→17:51)
[2016-10-23] MEDS: DORZOLAMIDE HCL 2% OPH SOLN 10 ML OU SCH ×3 (11:14→17:51)
--- NOTE | 2016-10-23 11:14 | PDOC PROGRESS REPORT ---
Subjective Progress Note for:: 10/23/16 Subjective:: The patient continues to be unresponsive. She is not eating very well. She appears to be very malnourished. Long discussion with the son about possible placement. He is still very reluctant and is considering taking her home with home health once her infection has cleared up. Advised patient that the sacral decub infection and her right ear infection might be very difficult to clear she is very malnourished. He does not want any tube feedings. Physical Exam Vital Signs: Temp Pulse Resp BP Pulse Ox 98.1 F 92 14 129/75 H 98 10/23/16 07:56 10/23/16 08:05 10/23/16 08:05 10/23/16 07:56 10/23/16 08:05 Intake & Output 10/22/16 10/23/16 10/24/16 06:59 06:59 06:59 Intake Total 2052 1203 Balance 2052 1203 Weight 53.1 kg 53.2 kg General appearance: PRESENT: mild distress Head exam: PRESENT: atraumatic Eye exam: PRESENT: conjunctival injection Neck exam: ABSENT: carotid bruit Respiratory exam: PRESENT: crackles Cardiovascular exam: PRESENT: +S1, +S2 Pulses: PRESENT: +1 pedal pulses bilateral GI/Abdominal exam: PRESENT: normal bowel sounds, soft Extremities exam: PRESENT: other Additional comments: Bilateral contracture upper extremities Musculoskeletal exam: PRESENT: other Neurological exam: PRESENT: aphasic Focused psych exam: PRESENT: catatonic Skin exam: PRESENT: skin tears Results Laboratory Results: 10/22/16 04:24 10/22/16 04:24 Impressions: Head CT 10/19/16 00:00 IMPRESSION: CHRONIC CHANGES OF ATROPHY AND MICROVASCULAR ISCHEMIA. NO ACUTE PROCESS. Chest X-Ray 10/20/16 06:00 IMPRESSION: NO ACUTE RADIOGRAPHIC FINDING IN THE CHEST. Assessment & Plan - Diagnosis (1) Acute kidney failure Qualifiers: Acute renal failure type: unspecified Qualified Code(s): N17.9 - Acute kidney failure, unspecified Is this a current diagnosis for this admission?: YesPlan: Improved with hydration (2) Dehydration Is this a current diagnosis for this admission?: YesPlan: Improving with IV fluids (3) Encephalopathy Is this a current diagnosis for this admission?: YesPlan: Stable not improving poor prognosis (4) SIRS (systemic inflammatory response syndrome) Is this a current diagnosis for this admission?: Yes (5) Hypernatremia Is this a current diagnosis for this admission?: Yes (6) Cachexia Is this a current diagnosis for this admission?: YesPlan: We'll continue to try to improve appetite (7) Malnutrition Is this a current diagnosis for this admission?: YesPlan: We'll attempt to add protein
[2016-10-23] MEDS: BRIMONIDINE TARTRATE 0.2% OPH SOLN 5 ML OU SCH ×3 (11:15→18:00)
[2016-10-23] MEDS: CARBOXYMETHYLCELLULOSE SOD 0.5% 0.4 ML DROPERETTE OU SCH ×3 (11:20→17:52)
[2016-10-23] MEDS: COLLAGENASE CLOSTRIDIUM HIST. OINT 30 GM TOP SCH (11:38)
[2016-10-23] MEDS: AZITHROMYCIN 500 MG in DEXTROSE 5%-WATER 250 ML IV SCH (16:18)
[2016-10-23] MEDS: BIMATOPROST 0.01% OPH SOLN 2.5 ML/BOTTLE OU SCH (22:27)
[2016-10-24] MEDS: HEPARIN SOD (PORCINE) 5,000 UNIT/ML 1 ML SYRINGE SUBCUT SCH ×3 (06:14→22:47)
--- NOTE | 2016-10-24 09:46 | PDOC PROGRESS REPORT ---
Subjective Progress Note for:: 10/24/16 Subjective:: The patient is even more lethargic this morning. The family is at the bedside. Long discussion with the son and 2 daughters. They know that the patient did not want any life support. She did not want any invasive procedures. They agree with the mother of not having a feeding tube. She is eating very little. Advised the family that she is not taking in enough nutrition or protein to be able to heal her decubital ulcerations and infections. Advised the family that there is poor prognosis and we have discussed the option of hospice and home discharge versus long-term placement in a few days if things are not improving. Physical Exam Vital Signs: Temp Pulse Resp BP Pulse Ox 97.8 F 84 16 116/83 91 L 10/24/16 07:47 10/24/16 07:47 10/24/16 07:47 10/24/16 07:47 10/24/16 07:47 Intake & Output 10/23/16 10/24/16 10/25/16 06:59 06:59 06:59 Intake Total 1203 970 Balance 1203 970 Weight 53.2 kg 55 kg General appearance: PRESENT: hard of hearing, thin Head exam: PRESENT: other Eye exam: PRESENT: conjunctival injection Neck exam: ABSENT: carotid bruit Respiratory exam: PRESENT: rhonchi Cardiovascular exam: PRESENT: tachycardia Pulses: PRESENT: other Vascular exam: PRESENT: pallor GI/Abdominal exam: PRESENT: normal bowel sounds, soft Extremities exam: PRESENT: other Neurological exam: PRESENT: aphasic. ABSENT: alert, awake, oriented to time Skin exam: PRESENT: skin tears Results Laboratory Results: 10/22/16 04:24 10/22/16 04:24 Impressions: Head CT 10/19/16 00:00 IMPRESSION: CHRONIC CHANGES OF ATROPHY AND MICROVASCULAR ISCHEMIA. NO ACUTE PROCESS. Chest X-Ray 10/20/16 06:00 IMPRESSION: NO ACUTE RADIOGRAPHIC FINDING IN THE CHEST. Assessment & Plan - Diagnosis (1) Acute kidney failure Qualifiers: Acute renal failure type: unspecified Qualified Code(s): N17.9 - Acute kidney failure, unspecified Is this a current diagnosis for this admission?: YesPlan: Improved with hydration (2) Dehydration Is this a current diagnosis for this admission?: YesPlan: Improving with IV fluids (3) Encephalopathy Is this a current diagnosis for this admission?: YesPlan: Stable not improving poor prognosis (4) SIRS (systemic inflammatory response syndrome) Is this a current diagnosis for this admission?: Yes (5) Hypernatremia Is this a current diagnosis for this admission?: Yes (6) Cachexia Is this a current diagnosis for this admission?: YesPlan: We'll continue to try to improve appetite (7) Malnutrition Is this a current diagnosis for this admission?: YesPlan: Discussed with the family about malnutrition. They agree with the mother's decision of not having a feeding tube
[2016-10-24] MEDS: BRIMONIDINE TARTRATE 0.2% OPH SOLN 5 ML OU SCH ×3 (10:10→18:00)
[2016-10-24] MEDS: MEGESTROL ACETATE SUSP 400 MG/10 ML UDCUP PO SCH (10:52)
[2016-10-24] MEDS: CYCLOSPORINE 0.05% OPH EMULSIO 0.4 ML DROPERETTE OU SCH ×2 (10:53→18:33)
[2016-10-24] MEDS: CARBOXYMETHYLCELLULOSE SOD 0.5% 0.4 ML DROPERETTE OU SCH ×3 (10:53→18:33)
[2016-10-24] MEDS: DORZOLAMIDE HCL 2% OPH SOLN 10 ML OU SCH ×3 (10:53→18:33)
[2016-10-24] MEDS: MULTIVITAMIN TABLET PO SCH (10:53)
[2016-10-24] MEDS: CEFTRIAXONE 1 GM/D5W RTU 50 ML IV SCH (10:54)
[2016-10-24] MEDS: COLLAGENASE CLOSTRIDIUM HIST. OINT 30 GM TOP SCH (11:02)
[2016-10-24] MEDS: AZITHROMYCIN 500 MG in DEXTROSE 5%-WATER 250 ML IV SCH (14:13)
[2016-10-24] MEDS: BIMATOPROST 0.01% OPH SOLN 2.5 ML/BOTTLE OU SCH (22:46)
[2016-10-25] MEDS: HEPARIN SOD (PORCINE) 5,000 UNIT/ML 1 ML SYRINGE SUBCUT SCH ×3 (06:04→21:26)
[2016-10-25] MEDS: DORZOLAMIDE HCL 2% OPH SOLN 10 ML OU SCH ×3 (09:24→18:05)
[2016-10-25] MEDS: CARBOXYMETHYLCELLULOSE SOD 0.5% 0.4 ML DROPERETTE OU SCH ×3 (09:24→18:05)
[2016-10-25] MEDS: CYCLOSPORINE 0.05% OPH EMULSIO 0.4 ML DROPERETTE OU SCH ×2 (09:25→18:05)
[2016-10-25] MEDS: CEFTRIAXONE 1 GM/D5W RTU 50 ML IV SCH (09:25)
[2016-10-25] MEDS: COLLAGENASE CLOSTRIDIUM HIST. OINT 30 GM TOP SCH (09:26)
[2016-10-25] MEDS: MULTIVITAMIN TABLET PO SCH (09:29)
[2016-10-25] MEDS: MEGESTROL ACETATE SUSP 400 MG/10 ML UDCUP PO SCH (09:29)
[2016-10-25] MEDS: BRIMONIDINE TARTRATE 0.2% OPH SOLN 5 ML OU SCH ×3 (09:30→18:04)
--- NOTE | 2016-10-25 10:35 | PDOC PROGRESS REPORT ---
Subjective Progress Note for:: 10/25/16 Subjective:: Patient's condition is unchanged She still is taking extremely little by mouth Somewhat withdrawn sleeping most of the day She communicates at times with the family Physical Exam Vital Signs: Temp Pulse Resp BP Pulse Ox 98.2 F 96 16 126/66 H 99 10/25/16 07:19 10/25/16 09:40 10/25/16 09:40 10/25/16 07:19 10/25/16 09:40 Intake & Output 10/24/16 10/25/16 10/26/16 00:59 00:59 00:59 Intake Total 890 920 900 Balance 890 920 900 Weight 53.2 kg 55 kg 52.9 kg General appearance: PRESENT: no acute distress, thin Head exam: PRESENT: atraumatic, normocephalic Eye exam: PRESENT: conjunctiva pale Neck exam: ABSENT: carotid bruit, JVD, lymphadenopathy, thyromegaly Respiratory exam: PRESENT: clear to auscultation valery. ABSENT: rales, rhonchi, wheezes Cardiovascular exam: PRESENT: RRR. ABSENT: diastolic murmur, rubs, systolic murmur Extremities exam: PRESENT: +2 edema Neurological exam: PRESENT: altered, other - Contracted upper extremities Responds to deep painful stimuli Results Laboratory Results: 10/22/16 04:24 10/22/16 04:24 Impressions: Head CT 10/19/16 00:00 IMPRESSION: CHRONIC CHANGES OF ATROPHY AND MICROVASCULAR ISCHEMIA. NO ACUTE PROCESS. Chest X-Ray 10/20/16 06:00 IMPRESSION: NO ACUTE RADIOGRAPHIC FINDING IN THE CHEST. Assessment & Plan - Diagnosis (1) Cachexia Is this a current diagnosis for this admission?: Yes (2) DNR (do not resuscitate) Is this a current diagnosis for this admission?: Yes (3) Encephalopathy Is this a current diagnosis for this admission?: Yes (4) Sacral decubitus ulcer, stage III Is this a current diagnosis for this admission?: Yes - Time Time Spent with patient: continue IV fluids Discussed discharge options Time Spent with patient: 15-24 minutes
[2016-10-25] MEDS: AZITHROMYCIN 500 MG in DEXTROSE 5%-WATER 250 ML IV SCH (14:24)
[2016-10-25] MEDS: BIMATOPROST 0.01% OPH SOLN 2.5 ML/BOTTLE OU SCH (21:26)
[2016-10-26] MEDS: DEXTROSE 5%-NORMAL SALINE 1,000 ML IV PRN (00:06)
[2016-10-26] MEDS: HEPARIN SOD (PORCINE) 5,000 UNIT/ML 1 ML SYRINGE SUBCUT SCH ×3 (05:46→21:38)
[2016-10-26] MEDS: MEGESTROL ACETATE SUSP 400 MG/10 ML UDCUP PO SCH (09:51)
[2016-10-26] MEDS: CARBOXYMETHYLCELLULOSE SOD 0.5% 0.4 ML DROPERETTE OU SCH ×3 (09:52→17:20)
[2016-10-26] MEDS: CYCLOSPORINE 0.05% OPH EMULSIO 0.4 ML DROPERETTE OU SCH ×2 (09:52→17:20)
[2016-10-26] MEDS: MULTIVITAMIN TABLET PO SCH (09:52)
[2016-10-26] MEDS: BRIMONIDINE TARTRATE 0.2% OPH SOLN 5 ML OU SCH ×3 (09:52→17:27)
[2016-10-26] MEDS: DORZOLAMIDE HCL 2% OPH SOLN 10 ML OU SCH ×3 (09:53→17:20)
[2016-10-26] MEDS: COLLAGENASE CLOSTRIDIUM HIST. OINT 30 GM TOP SCH (09:54)
[2016-10-26] MEDS: CEFTRIAXONE 1 GM/D5W RTU 50 ML IV SCH (11:16)
--- NOTE | 2016-10-26 13:54 | PDOC PROGRESS REPORT ---
Subjective Progress Note for:: 10/26/16 Subjective:: Patient still lethargic barely arousable , not responding to verbal stimuli not taking anything po IV fluids continued Physical Exam Vital Signs: Temp Pulse Resp BP Pulse Ox 97.9 F 87 16 131/68 H 100 10/26/16 07:27 10/26/16 13:27 10/26/16 10:50 10/26/16 07:27 10/26/16 10:50 Intake & Output 10/25/16 10/26/16 10/27/16 00:59 00:59 00:59 Intake Total 920 1000 782 Output Total 0 Balance 920 1000 782 Weight 55 kg 52.9 kg 52.7 kg General appearance: PRESENT: no acute distress, thin Head exam: PRESENT: atraumatic, normocephalic Eye exam: PRESENT: conjunctiva pale Neck exam: ABSENT: carotid bruit, JVD, lymphadenopathy, thyromegaly Respiratory exam: PRESENT: clear to auscultation valery. ABSENT: rales, rhonchi, wheezes Cardiovascular exam: PRESENT: RRR. ABSENT: diastolic murmur, rubs, systolic murmur Pulses: PRESENT: normal dorsalis pedis pul GI/Abdominal exam: PRESENT: normal bowel sounds, soft. ABSENT: distended, guarding, mass, organolmegaly, rebound, tenderness Extremities exam: PRESENT: +1 edema Neurological exam: PRESENT: altered, other - lethargic not arousable Results Laboratory Results: 10/22/16 04:24 10/22/16 04:24 Impressions: Head CT 10/19/16 00:00 IMPRESSION: CHRONIC CHANGES OF ATROPHY AND MICROVASCULAR ISCHEMIA. NO ACUTE PROCESS. Chest X-Ray 10/20/16 06:00 IMPRESSION: NO ACUTE RADIOGRAPHIC FINDING IN THE CHEST. Assessment & Plan - Diagnosis (1) Cachexia Is this a current diagnosis for this admission?: Yes (2) DNR (do not resuscitate) Is this a current diagnosis for this admission?: Yes (3) Encephalopathy Is this a current diagnosis for this admission?: Yes (4) Sacral decubitus ulcer, stage III Is this a current diagnosis for this admission?: Yes - Time Time Spent with patient: unfortunatly patient's condition may be terminal patient is not taking any nourishment po , and her mental status is declining family will decide on disposition in am Time Spent with patient: 15-24 minutes
[2016-10-26] MEDS: BIMATOPROST 0.01% OPH SOLN 2.5 ML/BOTTLE OU SCH (21:38)
[2016-10-27] MEDS: HEPARIN SOD (PORCINE) 5,000 UNIT/ML 1 ML SYRINGE SUBCUT SCH ×3 (05:38→21:29)
[2016-10-27 05:55] LABS: ABSOLUTE EOSINOPHILS # (AUTO) 0.2 10^3/uL (0.0-0.6); ABSOLUTE LYMPHOCYTES (AUTO) 1.4 10^3/uL (0.5-4.7); ABSOLUTE MONOCYTES (AUTO) 0.6 10^3/uL (0.1-1.4); ABSOLUTE NEUT (AUTO) 8.3 10^3/uL (1.7-8.2); BASOPHILS % (AUTO) 0.4 % (0-2); EOSINOPHILS % (AUTO) 1.5 % (0-6); HEMATOCRIT 29.4 % (36.0-47.0); HEMOGLOBIN 9.5 g/dL (12.0-15.5); HGB HCT DIFFERENCE -0.9; LYMPHOCYTES % (AUTO) 13.7 % (13-45); MEAN CORPUSCULAR HEMOGLOBIN 27.2 pg (27.0-33.4); MEAN CORPUSCULAR HGB CONC 32.5 g/dL (32.0-36.0); MEAN CORPUSCULAR VOLUME 84 fl (80-97); MONOCYTES % (AUTO) 5.7 % (3-13); RED CELL DISTRIBUTION WIDTH 18.1 % (11.5-14.0); SEGMENTED NEUTROPHILS % (AUTO) 78.7 % (42-78); WHITE BLOOD COUNT 10.6 10^3/uL (4.0-10.5)
[2016-10-27 06:17] LABS: ALANINE AMINOTRANSFERASE 31 U/L (9-52); ALBUMIN 2.4 g/dL (3.5-5.0); ALKALINE PHOSPHATASE 69 U/L (38-126); ANION GAP 10 (5-19); ASPARTATE AMINO TRANSFERASE 24 U/L (14-36); BILIRUBIN,TOTAL 0.4 mg/dL (0.2-1.3); BLOOD UREA NITROGEN 12 mg/dL (7-20); CALCIUM 9.3 mg/dL (8.4-10.2); CARBON DIOXIDE 22 mmol/L (22-30); CHLORIDE 124 mmol/L (98-107); CREATININE RESULT 0.77 mg/dL (0.52-1.25); GLUCOSE 103 mg/dL (75-110); POTASSIUM 3.3 mmol/L (3.6-5.0); SODIUM 155.9 mmol/L (137-145); TOTAL PROTEIN 5.2 g/dL (6.3-8.2)
[2016-10-27] MEDS: DORZOLAMIDE HCL 2% OPH SOLN 10 ML OU SCH ×3 (10:21→17:20)
[2016-10-27] MEDS: CYCLOSPORINE 0.05% OPH EMULSIO 0.4 ML DROPERETTE OU SCH ×2 (10:21→17:20)
[2016-10-27] MEDS: MULTIVITAMIN TABLET PO SCH (10:21)
[2016-10-27] MEDS: CARBOXYMETHYLCELLULOSE SOD 0.5% 0.4 ML DROPERETTE OU SCH ×3 (10:21→17:20)
[2016-10-27] MEDS: MEGESTROL ACETATE SUSP 400 MG/10 ML UDCUP PO SCH (10:21)
[2016-10-27] MEDS: COLLAGENASE CLOSTRIDIUM HIST. OINT 30 GM TOP SCH (10:22)
[2016-10-27] MEDS: BRIMONIDINE TARTRATE 0.2% OPH SOLN 5 ML OU SCH ×3 (10:23→17:19)
[2016-10-27] MEDS ORDERED: MORPHINE SULFATE 10 MG/ML INJ IV PRN (12:29)
--- NOTE | 2016-10-27 12:48 | PDOC PROGRESS REPORT ---
Subjective Progress Note for:: 10/27/16 Subjective:: The patient appears to be lethargic. She is not responding to verbal or painful stimuli. Long discussion with the son present at bedside about hospice and acute hospice care versus correction with hospice. He is finally agreeing and we will consult hospice. Physical Exam Vital Signs: Temp Pulse Resp BP Pulse Ox 97.1 F 89 16 132/82 H 100 10/27/16 11:05 10/27/16 11:05 10/27/16 11:05 10/27/16 11:05 10/27/16 11:05 Intake & Output 10/26/16 10/27/16 10/28/16 06:59 06:59 06:59 Intake Total 882 1776 Output Total 0 Balance 882 1776 Weight 52.7 kg 55.8 kg General appearance: PRESENT: mild distress Head exam: PRESENT: atraumatic Neck exam: ABSENT: carotid bruit Respiratory exam: PRESENT: rhonchi Cardiovascular exam: PRESENT: tachycardia GI/Abdominal exam: PRESENT: normal bowel sounds Extremities exam: PRESENT: other Musculoskeletal exam: PRESENT: other Neurological exam: ABSENT: alert, awake, oriented to time Psychiatric exam: PRESENT: other Additional comments: Unresponsive to painful or verbal stimuli comatose Results Laboratory Results: 10/27/16 04:38 10/27/16 04:38 10/27/16 10/27/16 04:38 04:38 WBC 10.6 H RBC 3.50 L Hgb 9.5 L Hct 29.4 L MCV 84 MCH 27.2 MCHC 32.5 RDW 18.1 H Plt Count 260 Seg Neutrophils % 78.7 H Lymphocytes % 13.7 Monocytes % 5.7 Eosinophils % 1.5 Basophils % 0.4 Absolute Neutrophils 8.3 H Absolute Lymphocytes 1.4 Absolute Monocytes 0.6 Absolute Eosinophils 0.2 Absolute Basophils 0.0 Sodium 155.9 H Potassium 3.3 L Chloride 124 H Carbon Dioxide 22 Anion Gap 10 BUN 12 Creatinine 0.77 Est GFR ( Amer) > 60 Est GFR (Non-Af Amer) > 60 Glucose 103 Calcium 9.3 Total Bilirubin 0.4 AST 24 ALT 31 Alkaline Phosphatase 69 Total Protein 5.2 L Albumin 2.4 L Impressions: Head CT 10/19/16 00:00 IMPRESSION: CHRONIC CHANGES OF ATROPHY AND MICROVASCULAR ISCHEMIA. NO ACUTE PROCESS. Chest X-Ray 10/20/16 06:00 IMPRESSION: NO ACUTE RADIOGRAPHIC FINDING IN THE CHEST. Assessment & Plan - Diagnosis (1) Acute kidney failure Qualifiers: Acute renal failure type: unspecified Qualified Code(s): N17.9 - Acute kidney failure, unspecified Is this a current diagnosis for this admission?: Yes (2) Dehydration Is this a current diagnosis for this admission?: Yes (3) Encephalopathy Is this a current diagnosis for this admission?: Yes (4) SIRS (systemic inflammatory response syndrome) Is this a current diagnosis for this admission?: Yes (5) Hypernatremia Is this a current diagnosis for this admission?: Yes (6) Cachexia Is this a current diagnosis for this admission?: Yes (7) Malnutrition Is this a current diagnosis for this admission?: Yes
[2016-10-27] MEDS ORDERED: ACETAMINOPHEN 650 MG SUPP.RECT PR PRN (12:54)
[2016-10-27] MEDS: BIMATOPROST 0.01% OPH SOLN 2.5 ML/BOTTLE OU SCH (21:29)
[2016-10-28] MEDS: DEXTROSE 5%-NORMAL SALINE 1,000 ML IV PRN (04:00)
[2016-10-28] MEDS: HEPARIN SOD (PORCINE) 5,000 UNIT/ML 1 ML SYRINGE SUBCUT SCH ×2 (05:12→14:57)
--- NOTE | 2016-10-28 09:02 | PDOC PROGRESS REPORT ---
Subjective Progress Note for:: 10/28/16 Subjective:: The patient is lethargic and poorly responsive. Discussed with the son about hospice house as an inpatient. He is agreeable to it. He wants to go and visit the facility before he makes the final decision Physical Exam Vital Signs: Temp Pulse Resp BP Pulse Ox 97.4 F 91 22 H 129/77 H 93 10/28/16 07:55 10/28/16 07:55 10/28/16 07:55 10/28/16 07:55 10/28/16 00:17 Intake & Output 10/27/16 10/28/16 10/29/16 06:59 06:59 06:59 Intake Total 1776 1312 Balance 1776 1312 Weight 55.8 kg 59.7 kg General appearance: PRESENT: mild distress Neck exam: ABSENT: carotid bruit Respiratory exam: PRESENT: rhonchi Cardiovascular exam: PRESENT: tachycardia GI/Abdominal exam: PRESENT: normal bowel sounds Extremities exam: PRESENT: other Musculoskeletal exam: PRESENT: other Neurological exam: ABSENT: alert, awake Results Laboratory Results: 10/27/16 04:38 10/27/16 04:38 Impressions: Head CT 10/19/16 00:00 IMPRESSION: CHRONIC CHANGES OF ATROPHY AND MICROVASCULAR ISCHEMIA. NO ACUTE PROCESS. Chest X-Ray 10/20/16 06:00 IMPRESSION: NO ACUTE RADIOGRAPHIC FINDING IN THE CHEST. Assessment & Plan - Diagnosis (1) Acute kidney failure Qualifiers: Acute renal failure type: unspecified Qualified Code(s): N17.9 - Acute kidney failure, unspecified Is this a current diagnosis for this admission?: Yes (2) Dehydration Is this a current diagnosis for this admission?: Yes (3) Encephalopathy Is this a current diagnosis for this admission?: YesPlan: Stable not improving poor prognosis (4) SIRS (systemic inflammatory response syndrome) Is this a current diagnosis for this admission?: Yes (5) Hypernatremia Is this a current diagnosis for this admission?: Yes (6) Cachexia Is this a current diagnosis for this admission?: YesPlan: We'll continue to try to improve appetite (7) Malnutrition Is this a current diagnosis for this admission?: YesPlan: Discussed with the family about malnutrition. They agree with the mother's decision of not having a feeding tube
[2016-10-28] MEDS: COLLAGENASE CLOSTRIDIUM HIST. OINT 30 GM TOP SCH (09:10)
[2016-10-28] MEDS: CYCLOSPORINE 0.05% OPH EMULSIO 0.4 ML DROPERETTE OU SCH ×2 (09:10→17:23)
[2016-10-28] MEDS: DORZOLAMIDE HCL 2% OPH SOLN 10 ML OU SCH ×3 (09:11→17:23)
[2016-10-28] MEDS: BRIMONIDINE TARTRATE 0.2% OPH SOLN 5 ML OU SCH ×3 (09:11→17:23)
[2016-10-28] MEDS: MULTIVITAMIN TABLET PO SCH (09:12)
[2016-10-28] MEDS: CARBOXYMETHYLCELLULOSE SOD 0.5% 0.4 ML DROPERETTE OU SCH ×3 (09:12→17:23)
--- NOTE | 2016-10-28 16:48 | PDOC DISCHARGE SUMMARY ---
General - Admit/Disc Date/PCP Admission Date/Primary Care Provider: 10/19/16 12:39 JACINTO ROA MD Discharge Date: 10/28/16 - Discharge Diagnosis (1) Acute kidney failure Is this a current diagnosis for this admission?: Yes (2) Dehydration Is this a current diagnosis for this admission?: Yes (3) Encephalopathy Is this a current diagnosis for this admission?: Yes (4) SIRS (systemic inflammatory response syndrome) Is this a current diagnosis for this admission?: Yes (5) Hypernatremia Is this a current diagnosis for this admission?: Yes (6) Cachexia Is this a current diagnosis for this admission?: Yes (7) Malnutrition Is this a current diagnosis for this admission?: Yes - Additional Information Resuscitation Status: Do Not Resuscitate Discharge Diet: As Tolerated History of Present Illness History of Present Illness: DARION KAUFMAN is a 81 year old female Hospital Course Hospital Course: The patient was admitted to the hospital. She continued to be comatose. Long discussion with the family because of her encephalopathy, cachexia malnutrition about possible hospice. The family finally has agreed to hospice care. A bad at hospice care was available and patient will be transferred to an inpatient hospice. Her prognosis remains poor. She is contracted. She is unresponsive to verbal or painful stimuli. She appears to be comatose Physical Exam Vital Signs: Temp Pulse Resp BP Pulse Ox 97.4 F 89 22 H 129/77 H 93 10/28/16 07:55 10/28/16 14:00 10/28/16 07:55 10/28/16 07:55 10/28/16 00:17 Intake & Output 10/27/16 10/28/16 10/29/16 06:59 06:59 06:59 Intake Total 1776 1312 50 Balance 1776 1312 50 Weight 55.8 kg 59.7 kg Results Laboratory Results: 10/27/16 04:38 10/27/16 04:38 Impressions: Head CT 10/19/16 00:00 IMPRESSION: CHRONIC CHANGES OF ATROPHY AND MICROVASCULAR ISCHEMIA. NO ACUTE PROCESS. Chest X-Ray 10/20/16 06:00 IMPRESSION: NO ACUTE RADIOGRAPHIC FINDING IN THE CHEST. Plan Discharge Plan: Because of patient's current condition family wishes of comfort measures only and family wishes to have patient at hospice house the patient will be transferred to hospice house. She has less than 1 week survival. She is DO NOT RESUSCITATE and family wishes just comfort measures.
[2016-10-28 17:02] VITALS: BP 128/74
== END 2016-10-28 17:28 | disposition hospice, inpatient (51) | DRG 682 ==
LOC: ER 07:48 → EH 12:39 → 3N 10-20 13:06
PROVIDERS: ADMIT Family Medicine; ATTEND Family Medicine
DX: N17.9 Acute kidney failure, unspecified (principal); G93.40 Encephalopathy, unspecified; L89.154 Pressure ulcer of sacral region, stage 4; E87.0 Hyperosmolality and hypernatremia; R64 Cachexia; E46 Unspecified protein-calorie malnutrition; E86.0 Dehydration; H66.91 Otitis media, unspecified, right ear; J44.9 Chronic obstructive pulmonary disease, unspecified; E11.9 Type 2 diabetes mellitus without complications; E03.9 Hypothyroidism, unspecified; F03.90 Unspecified dementia, unspecified severity, without behavioral disturbance, psychotic disturbance, mood disturbance, and anxiety; Z79.82 Long term (current) use of aspirin; Z79.899 Other long term (current) drug therapy; Z96.649 Presence of unspecified artificial hip joint; Z66 Do not resuscitate
CPT/HCPCS: 36415; 70450; 71010; 80048; 80053; 81001; 82550; 82553; 82803; 82962; 83605; 83880; 84484; 85025; 87040; 87804; 93005; 93010; 94640; 96365; 99291; G8996-GN; G8997-GN; G8998-GN; J0456; J0696; J1644; J3490; J7030; J7060